=== PATIENT | female | born 1980 | race Caucasian/White ===

== ENCOUNTER 2017-08-05 11:27 | Inpatient (IN) | payer BC ==
[2017-08-05 11:50] LABS: Hematocrit 34.5 % (37.0-47.0); Hemoglobin 12.2 gm/dL (12.5-16.0); Mean Cell Volume 89.4 fl (78-100); Mean Corpuscular Hemoglobin 31.6 pg (27-31); Mean Corpuscular Hgb Conc 35.4 g/dl (32-36); Mean Platelet Volume 10.8 fl (6.0-9.5); Neutrophil # 6.4 K/mm3 (1.3-6.0); Neutrophil % 73.4 % (42-75.0); Platelet Count 191 K/mm3 (150-450); Red Blood Count 3.86 M/mm3 (4.2-5.4); Red Cell Distribution Width 13.2 % (11.5-14.0); White Blood Count 8.8 K/mm3 (4.0-10.5)
[2017-08-05 12:06] LABS: Albumin * 2.9 gm/dl (3.4-5.0); Anion Gap 15.1 mmol/L (6.8-13.8); BUN/Creatinine Ratio 11.3 (9.0-21.6); Bilirubin, Total 0.3 mg/dL (0.0-1.1); Ca. Corrected For Albumin 9.5 mg/dL (8.4-10.2); Calcium * 8.9 mg/dL (7.9-10.9); Potassium 4.1 mmol/L (3.4-4.6); Total Protein 6.6 gm/dL (6.2-8.2)
[2017-08-05] MEDS: RINGER'S SOLUTION,LACTATED 1,000 ML IV ONE ×2 (12:09→14:02)
[2017-08-05] MEDS ORDERED: LIDOCAINE HCL 50 ML VIAL PERI PRN (12:23)
[2017-08-05] MEDS ORDERED: OXYTOCIN/DEXTROSE 5%-WATER 30 UNITS/500 ML BAG IV ONE ×2 (12:23→19:24)
[2017-08-05] MEDS: DEXTROSE 5%-LACTATED RINGERS 1,000 ML IV PRN ×2 (13:08→15:09)
[2017-08-05 13:09] LABS: Cocaine Ur Negative (NEGATIVE); Urine Barbiturate Negative (NEGATIVE); Urine Benzodiazepines Negative (NEGATIVE); Urine Opiates Negative (NEGATIVE); Urine PCP Negative (NEGATIVE); Urine THC Negative (NEGATIVE)
[2017-08-05] MEDS ORDERED: ONDANSETRON HCL/PF 2 MG/ML VIAL IV PRN (14:07)
[2017-08-05] MEDS ORDERED: BUPIVACAINE HCL/0.9 % NACL/PF 250 ML EP PRN (14:07)
[2017-08-05] MEDS ORDERED: NALOXONE HCL 1 MG/1 ML SYRG IV PRN (14:07)
[2017-08-05] MEDS ORDERED: fentaNYL CITRATE/PF 50 MCG/ML AMPUL IT SCH (14:15)
--- NOTE | 2017-08-05 14:43 | OR ---
Anesthesia Pre Procedure Eval Date of Service: 08/05/17 Pre Procedure Evaluation: Anesthesia Pre Procedure Evaluation Heart Rate: 75 Blood Pressure: 130/67 Temperature: 36 2 Respiratory Rate: 18 SaO2: 97 DATE: 08/05/2017 TIME: 1440 INDICATIONS: Active labor, labor pain PAST MEDICAL HISTORY: Multipara patient in active labor requesting labor analgesia. She is currently at 6 cm dilatation History of GERD: No History of smoking: No History of sleep apnea: No EXAM: Heart regular; lungs clear ASSESSMENT OF MEDICAL STATUS: Appropriate candidate for labor analgesia PLANNED PROCEDURE: Combination spinal epidural for labor analgesia Home Medications: HOME MEDICATIONS Ferrous Sulfate 325 mg PO DAILY 07/01/17 [Last Taken Unknown] Magnesium 250 mg PO DAILY 07/01/17 [Last Taken Unknown] Potassium 99 mg PO DAILY 07/01/17 [Last Taken Unknown] Vits96/Iron Fum/Folic [ S] 1 tab PO DAILY 07/01/17 [Last Taken Unknown]
--- NOTE | 2017-08-05 15:04 | OR ---
Anesthesia Procedure Note - Anesthesia Procedure Note Date of Service: 08/05/17 Narrative: 08/05/17 15:02 ANESTHESIA PROCEDURE NOTE Date of Procedure: 08/05/2017 Time of procedure: 1440. Performed by: GULSHAN Hernandez CRNA, MSN Test And Turn Up Technician: Shonda Arzate RN. Preprocedure diagnosis: Active labor, labor pain. Post procedure diagnosis: Same. Procedure:Epidural for labor analgesia L3 4. Indications: Labor pain. Findings: See below. Details of the procedure: The patient was placed on the side of the bed in sitting positionand prepped with DuraPrep then draped in a sterile fashion. Lidocaine 1% was infiltrated to the skin and subcutaneous tissues at the level of the L3 4 interspace. An 18-gauge Touhy needle was used to approach the epidural space with loss of resistance technique. Once loss of resistance was achieved a 27-gauge spinal needle was passed through the epidural needle and CSF was contacted. After CSF returned, 20 mcg of fentanyl was injected in the spinal needle was removed the epidural catheter was then threaded approximately 4 cm in the epidural needle was removed. The catheter was taped in place and after careful aspiration 3 mL of 1.5% lidocaine with 1-200,000 epinephrine was injected without change in maternal heart rate or sensorium. . EBL: Minimal. Fluids: N/A. Specimen: N/A. Post procedure condition: The patient tolerated the procedure well with. Relief. No complications were noted. Thank you for this consultation. Eduardo Rosenbaum CRNA, GLUSHAN, MSN
[2017-08-05] MEDS ORDERED: FLU VACC QS2017-18(6MOS UP)/PF 60 MCG/0.5 ML SYRINGE IM ONE (17:00)
--- NOTE | 2017-08-05 19:20 | OR ---
Operative Report - Dictated Report Narrative: Spontaneous vaginal delivery of viable female at 1847 on 08/05/2017 with Apgars 8 and 9, weighing 2655 g in DANICA position with tight nuchal cord 1 Cord clamping delayed approximately 1 minute Placenta delivered complete, intact, with three vessel cord Estimated blood loss: less than 50 ml Lacerations: None History for MU Definition: * The number of deliveries resulting in a live the patient experienced prior to current hospitalization * The previous delivery of live twins or any live multiple gestation is considered one live event. *If primagravida or nulliparous is documented select zero for the number of previous live births. Live Events: 2
[2017-08-05] MEDS ORDERED: oxyCODONE HCL/ACETAMINOPHEN 1 TAB TABLET PO PRN ×2 (19:24)
[2017-08-05] MEDS ORDERED: HYDROCORTISONE 30 APPL TUBE TP PRN (19:24)
[2017-08-05] MEDS ORDERED: SENNOSIDES 8.6 MG TABLET PO PRN (19:24)
[2017-08-05] MEDS ORDERED: BISACODYL 10 MG SUPP.RECT RC PRN (19:24)
[2017-08-05] MEDS ORDERED: GLYCERIN/WITCH HAZEL LEAF 40 APPL BOX TP PRN (19:24)
[2017-08-05] MEDS ORDERED: BENZOCAINE/MENTHOL 81 SPRAY CAN TP PRN (19:24)
[2017-08-05] MEDS: DOCUSATE SODIUM 100 MG CAPSULE PO SCH (21:06)
[2017-08-05] MEDS: FERROUS SULFATE 325 MG TABLET PO SCH (21:06)
[2017-08-05] MEDS: IBUPROFEN 800 MG TABLET PO PRN (21:47)
[2017-08-06] MEDS ORDERED: RHO(D) IMMUNE GLOBULIN 300 MCG DISP.SYRIN IM ONE (00:28)
[2017-08-06] MEDS: DOCUSATE SODIUM 100 MG CAPSULE PO SCH ×3 (07:41→20:18)
[2017-08-06] MEDS: FERROUS SULFATE 325 MG TABLET PO SCH ×2 (07:41→08:42)
[2017-08-06] MEDS: IBUPROFEN 800 MG TABLET PO PRN ×3 (07:42→22:16)
[2017-08-06] MEDS: MAGNESIUM OXIDE 400 MG TABLET PO SCH (09:20)
[2017-08-06] MEDS: PRENATAL VITS96/IRON FUM/FOLIC 1 TAB TABLET PO SCH (09:20)
--- NOTE | 2017-08-06 12:25 | PN ---
Subjective - Date and Time Seen Date: 08/06/17 Time: 12:25 Objective - Vitals Vitals: Last Vital Signs Temp 36.5 C 08/06/17 08:21 Pulse 63 08/06/17 08:21 Resp 16 08/06/17 08:21 BP 120/71 08/06/17 08:21 Pulse Ox 100 08/06/17 08:21 Patient denies complaints. Lochia wnl Abdomen - soft, nontender Uterus - firm, at umbilicus - 1 No calf tenderness Impression: day #1 - s/p spontaneous vaginal delivery. Plan: Continue routine care Cauti Physician Documentation - Urinary Catheter Management Urethral ([place] Torre) Date of Insertion: 08/05/17 Time of Insertion: 15:25
[2017-08-06] MEDS ORDERED: FLU VACC QS2017-18(6MOS UP)/PF 60 MCG/0.5 ML SYRINGE IM ONE (15:02)
[2017-08-07 08:23] VITALS: BP 131/76
--- NOTE | 2017-08-07 09:21 | PN ---
Subjective - Date and Time Seen Date: 08/07/17 Time: 09:21 Objective - Vitals Vitals: Last Vital Signs Temp 36.4 C L 08/07/17 08:00 Pulse 72 08/07/17 08:00 Resp 20 08/07/17 08:00 BP 131/76 08/07/17 08:00 Pulse Ox 97 08/07/17 02:05 Patient denies complaints. Lochia wnl Abdomen - soft, nontender Uterus - firm, at umbilicus - 2 No calf tenderness Impression: day #2 - s/p spontaneous vaginal delivery. Plan: Routine discharge instructions Cauti Physician Documentation - Urinary Catheter Management Urethral ([place] Torre) Date of Insertion: 08/05/17 Time of Insertion: 15:25
[2017-08-07] MEDS: FERROUS SULFATE 325 MG TABLET PO SCH (09:35)
[2017-08-07] MEDS: IBUPROFEN 800 MG TABLET PO PRN (09:35)
[2017-08-07] MEDS: DOCUSATE SODIUM 100 MG CAPSULE PO SCH (09:35)
[2017-08-07] MEDS: PRENATAL VITS96/IRON FUM/FOLIC 1 TAB TABLET PO SCH (09:35)
[2017-08-07] MEDS: MAGNESIUM OXIDE 400 MG TABLET PO SCH (09:35)
== END 2017-08-07 12:20 | disposition home or self-care (01) | DRG 774 ==
LOC: OBCLINIC 11:27 → OB 11:38
PROVIDERS: ADMIT Obstetrics & Gynecology; ATTEND Obstetrics & Gynecology
PROC: 00HU33Z Insertion of Infusion Device into Spinal Canal, Percutaneous Approach (ICD-10-PCS; principal; 2017-08-05)
PROC: 10E0XZZ Delivery of Products of Conception, External Approach (ICD-10-PCS; 2017-08-05)
PROC: 4A1HXCZ Monitoring of Products of Conception, Cardiac Rate, External Approach (ICD-10-PCS; 2017-08-05)
PROC: 3E0234Z Introduction of Serum, Toxoid and Vaccine into Muscle, Percutaneous Approach (ICD-10-PCS; 2017-08-05)
DX: O60.14X0 Preterm labor third trimester with preterm delivery third trimester, not applicable or unspecified (principal); O46.93 Antepartum hemorrhage, unspecified, third trimester; O69.1XX0 Labor and delivery complicated by cord around neck, with compression, not applicable or unspecified; O99.02 Anemia complicating childbirth; D64.9 Anemia, unspecified; F41.9 Anxiety disorder, unspecified; Z3A.37 37 weeks gestation of pregnancy; Z37.0 Single live birth; Z23 Encounter for immunization
CPT/HCPCS: 36415; 59025; 80053; 80307; 85025; 85460; 86850; 86870; 86900; 88307; 90686; G0008; J2790

== ENCOUNTER 2018-07-21 16:53 | Inpatient (IN) ==
[2018-07-21] MEDS ORDERED: PENICILLIN G POTASSIUM 5 MILLIONUNT in DEXTROSE 5 % IN WATER 100 ML IV ONE ×2 (17:04)
[2018-07-21] MEDS ORDERED: DEXTROSE 5%-LACTATED RINGERS 1,000 ML IV PRN (17:04)
[2018-07-21] MEDS ORDERED: ONDANSETRON HCL/PF 2 MG/ML VIAL IV PRN ×2 (17:04→17:07)
[2018-07-21] MEDS ORDERED: RINGER'S SOLUTION,LACTATED 1,000 ML IV ONE (17:04)
[2018-07-21] MEDS ORDERED: BUPIVACAINE HCL/0.9 % NACL/PF 250 ML EP PRN (17:07)
[2018-07-21] MEDS ORDERED: NALOXONE HCL 1 MG/1 ML SYRG IV PRN (17:07)
[2018-07-21] MEDS ORDERED: OXYTOCIN 30 UNITS in NORMAL SALINE 500 ML IV ONE (17:15)
[2018-07-21] MEDS ORDERED: fentaNYL CITRATE/PF 50 MCG/ML AMPUL IT SCH (17:15)
--- NOTE | 2018-07-21 17:18 | HP ---
Addendum entered and electronically signed by Darell Gupta DO 07/28/18 09:42: Admission Vitals: T 36.2C, P 75, O2 97%, R 16, BP 122/66 Original Note: Chief Complaint - Chief Complaint Date of Service: 07/21/18 Time of Service: 17:07 Chief Complaint: painful contractions History of Present Illness: 38 yo at 37 2/7 wks presents to L&D from office with complaint of painful contractions since approximately 1300 today. This complicated by AMA, h/o PTD x 3 (35,35, and 36wks) - on progesterone suppositories this . Rh negative Rubella immune GBS pending Medical History (Last Reviewed 07/21/18 @ 17:12 by Darell Gupta DO) AMA (advanced maternal age) multigravida 35+ Onset Date: ~2017 ASCUS with positive high risk HPV Onset Date: 09/03/17 Abnormal Pap smear of cervix Onset Date: ~2009 Anxiety Body piercing Insomnia Tattoos Anemia Onset Date: ~2016 Breast lump Onset Date: 10/24/12 Placental abruption Onset Date: ~07/2017 Premature delivery Onset Date: ~2005 Surgical History: Surgical History (Last Reviewed 07/21/18 @ 17:12 by Darell Gupta DO) History of colposcopy Onset Date: 12/06/09 History of breast augmentation Onset Date: 03/15/10 History of breast biopsy Onset Date: 10/24/12 History of colonoscopy Onset Date: 2002 Family History: Family History (Last Reviewed 07/21/18 @ 17:12 by Darell Gupta DO) Brother Lupus Father Hyperlipemia Hypertension Grandmother Heart disease Hypothyroidism Mother Cervical cancer Acoustic neuroma Uncle Colon cancer Social History: Preferred Language Mongolian Review Of Systems (GEN) - Review of Systems EENTM: Present: No Symptoms Reported Respiratory: Present: No Symptoms Reported Cardiac: Present: No Symptoms Reported Abdominal: Present: No Symptoms Reported Genitourinary: Present: No Symptoms Reported, Other - contractions Musculoskeletal: Present: No Symptoms Reported Neurological: Present: No Symptoms Reported Skin: Present: No Symptoms Reported Endocrine: Present: No Symptoms Reported Allergies/Adverse Reactions: Allergies Allergy/AdvReac Type Severity Reaction Status Date / Time No Known Allergies Allergy Verified 07/21/18 17:01 Home Medications: HOME MEDICATIONS Vits96/Iron Fum/Folic [ S] 1 tab PO DAILY 07/01/17 [Last Taken 07/20/18] melatonin 5 mg capsule 5 mg PO .prn cap 05/02/18 [Last Taken Unknown] Exam - Exam Constitutional: Present: Alert, Oriented x3, Cooperative, Moderate distress ENT Exam: Present: hearing grossly normal Respiratory: Present: lungs clear, no respiratory distress Cardiovascular/Chest: Present: regular rate, rhythm Abdomen: Present: soft, nontender, other - gravid /Rectal: Present: Other - cervix 6-7/100/-1 Extremity: Present: no pedal edema, no calf tenderness Skin Exam: Present: normal color, warm/dry, no cyanosis Appearance: Present: appropriate appearance Eye contact: Present: cooperative, good eye contact Thoughts: Present: normal thought pattern Diagnostic Studies: GBS culture done today - results pending. Assessment/Plan - Assessment/Plan (1) Labor established Assessment: Admit for routine management of labor. PCN for unknown GBS status. Epidural PRN. Problem: Acute (2) Advanced maternal age in multigravida Problem: Acute
--- NOTE | 2018-07-21 17:31 | ANES ---
Anesthesia Pre Procedure Eval Vitals/Labs: Last Vital Signs Temp 36.5 C 07/21/18 17:09 Pulse 73 07/21/18 17:09 Resp 18 07/21/18 17:09 BP 127/80 07/21/18 17:09 Pulse Ox 97 07/21/18 17:09 HOME MEDICATIONS Vits96/Iron Fum/Folic [ S] 1 tab PO DAILY 07/01/17 [Last Taken 07/20/18] melatonin 5 mg capsule 5 mg PO .prn cap 05/02/18 [Last Taken Unknown] Allergies/Adverse Reactions: Allergies Allergy/AdvReac Type Severity Reaction Status Date / Time No Known Allergies Allergy Verified 07/21/18 17:01 - Planned Procedure Planned Procedure: ACTIVE LABOR Medication List Reviewed:: Yes Allergies Verified: Yes Medical History (Last Reviewed 07/21/18 @ 17:30 by Anthony Bryant CRNA) AMA (advanced maternal age) multigravida 35+ Onset Date: ~2017 ASCUS with positive high risk HPV Onset Date: 09/03/17 Abnormal Pap smear of cervix Onset Date: ~2009 Anxiety Body piercing Insomnia Tattoos Anemia Onset Date: ~2016 Breast lump Onset Date: 10/24/12 Placental abruption Onset Date: ~07/2017 Premature delivery Onset Date: ~2005 Surgical History (Last Reviewed 07/21/18 @ 17:30 by Anthony Bryant CRNA) History of colposcopy Onset Date: 12/06/09 History of breast augmentation Onset Date: 03/15/10 History of breast biopsy Onset Date: 10/24/12 History of colonoscopy Onset Date: 2002 Family History (Last Reviewed 07/21/18 @ 17:30 by Anthony Bryant CRNA) Brother Lupus Father Hyperlipemia Hypertension Grandmother Heart disease Hypothyroidism Mother Cervical cancer Acoustic neuroma Uncle Colon cancer - Family Anesthesia History Family History:: no untoward family reactions to anesthesia - Airway/Neck/Teeth Within Normal Limits:: Yes Teeth Condition: Intact Mallampatti Score: 2 Thyromental (T-M) distance: > 6 cm Mandibulo Hyoid distance: > 3 cm - Respiratory Respiratory: lungs clear Smoking Status: Never smoker Sleep Apnea currently treated: No Sleep Apnea by current assessment: No - Cardiovascular Patient History - Cardiac/Respiratory: No pertinent hx Tolerates Activity: Good Heart Sounds: S1 & S2, Regular - Anesthesia Assessment and Plan ASA Class: PS, II, E Anesthesia Type Plan: Epidural
--- NOTE | 2018-07-21 17:54 | ANES ---
Post Anesthesia Discharge - Transfer of Care Transfer of Care handoff given to nurse: Yes - Anesthesia Post Op Note Anesthesia Post Op Note: care transferred to OB RN
--- NOTE | 2018-07-21 17:54 | ANES ---
Post Anesthesia Assessment - Vital Signs Vitals: Last Vital Signs Temp 36.5 C 07/21/18 17:09 Pulse 90 07/21/18 17:51 Resp 16 07/21/18 17:51 BP 123/59 07/21/18 17:51 Pulse Ox 97 07/21/18 17:51 Airway Patency: Normal - Mental Status Level Of Consciousness: Awake - Pain Level Pain Score: 1 - N/V Assessment Nausea/Vomiting Presence: None Dehydration:: No
--- NOTE | 2018-07-21 17:57 | ANES ---
Anesthesia Procedure Note Procedure Note: ANESTHESIA PROCEDURE NOTE Date of Procedure: 07/21/2018 Time of procedure:[]. 1745 Performed by: Kaleb Bryant CRNA Digital Marketing Lead: None. Preprocedure diagnosis: Active labor. Post procedure diagnosis: Same. Procedure: Insertion of labor epidural. Indications: The patient is a [38] -year-old [multigravida] female in active labor requesting labor epidural for pain management. Findings: See below. Details of the procedure: The patient was placed in a sitting position. Back was prepped with DuraPrep. Patient was then draped in a sterile fashion. Lidocaine 1% was infiltrated to the skin and subcutaneous tissues at the level of the L3 4 interspace. The epidural space was identified using a 18-gauge Tuohy needle with [id number] technique. 20 mcg fentanyl was given intrathecally using a 27 ga. spinal needle. Epidural catheter was inserted without difficulty. Negative test dose was elicited using 5 mL of 1.5% preservative-free lidocaine plus epinephrine 1 200,000. The epidural catheter was then taped and secured in place. EBL: Minimal. Fluids: N/A. Specimen: N/A. Post procedure condition: The patient tolerated the procedure well. No complications were noted. Thank you for this consultation. Lorenzo CRNA
[2018-07-21] MEDS ORDERED: BISACODYL 10 MG SUPP.RECT RC PRN (19:41)
[2018-07-21] MEDS ORDERED: OXYTOCIN/DEXTROSE 5%-WATER 30 UNITS/500 ML BAG IV ONE (19:41)
[2018-07-21] MEDS ORDERED: SENNOSIDES 8.6 MG TABLET PO PRN (19:41)
[2018-07-21] MEDS ORDERED: GLYCERIN/WITCH HAZEL LEAF 40 APPL BOX TP PRN (19:41)
[2018-07-21] MEDS ORDERED: HYDROCORTISONE 30 APPL TUBE TP PRN (19:41)
[2018-07-21] MEDS ORDERED: BENZOCAINE/MENTHOL 81 SPRAY CAN TP PRN (19:41)
[2018-07-21] MEDS ORDERED: oxyCODONE HCL/ACETAMINOPHEN 1 TAB TABLET PO PRN ×2 (19:41)
--- NOTE | 2018-07-21 19:45 | OR ---
Operative Report - Dictated Report Narrative: Indication: Recurrent late decelerations Pre Procedure: Patient was counseled to the risk, benefits, and alternatives to operative vaginal delivery. All questions were answered. Patient consented to proceed with operative vaginal delivery. Cervix was completely dilated and effaced, maternal- size appropriate for application, bladder was emptied, flexion point identified, cup choice appropriate for application site, maternal tissue excluded from vacuum cup heart rate interpretation: Recurrent late decelerations down to the 70s, EFW 2700 g, station +3, Position of head OA Anesthesia: epidural Procedure: Total application time of the Kiwi Pro with Palm Pump was 20 seconds Maximum vacuum achieved was 500 mm Hg Number of pulls 1 Number of involuntary releases 0 Vacuum reduced between contractions Advancement in station with each pull Degree of rotation 0-45 Post Procedure: Viable male born at 1916 on 07/21/2016 with Apgars 5,8 and 8, weighing 3026 grams in DANICA presentation Placenta spontaneously delivered EBL less than 50 mL Cord gases not collected Lacerations none no injury, no shoulder dystocia
[2018-07-21] MEDS ORDERED: PENICILLIN G POTASSIUM 2.5 MILLIONUNT in DEXTROSE 5 % IN WATER 100 ML IV SCH ×2 (21:05)
[2018-07-21] MEDS: IBUPROFEN 800 MG TABLET PO PRN (23:04)
[2018-07-21] MEDS: DOCUSATE SODIUM 100 MG CAPSULE PO SCH (23:04)
[2018-07-22] MEDS: IBUPROFEN 800 MG TABLET PO PRN ×2 (05:10→11:38)
[2018-07-22] MEDS: DOCUSATE SODIUM 100 MG CAPSULE PO SCH ×2 (11:38→21:50)
--- NOTE | 2018-07-22 13:16 | PN ---
Subjective - Date and Time Seen Date: 07/22/18 Time: 13:15 Objective - Vitals Vitals: Last Vital Signs Temp 36.3 C 07/22/18 07:50 Pulse 58 L 07/22/18 07:50 Resp 16 07/22/18 07:50 BP 123/72 07/22/18 07:50 Pulse Ox 99 07/22/18 07:50 Patient denies complaints. Breast-feeding without difficulty Lochia wnl Abdomen - soft, nontender Uterus - firm, at umbilicus - 1 No calf tenderness Impression: day #1 - s/p spontaneous vaginal delivery. Plan: Continue routine care Assessment/Plan - Problems/Diagnosis (1) Labor established Problem: Acute (2) Advanced maternal age in multigravida Problem: Acute
[2018-07-23] MEDS: IBUPROFEN 800 MG TABLET PO PRN (01:08)
[2018-07-23] MEDS ORDERED: PRENATAL VITS96/IRON FUM/FOLIC 1 TAB TABLET PO SCH (09:00)
[2018-07-23 10:06] VITALS: BP 118/58
[2018-07-23] MEDS: DOCUSATE SODIUM 100 MG CAPSULE PO SCH (10:41)
--- NOTE | 2018-07-23 13:09 | PN ---
Subjective - Date and Time Seen Date: 07/23/18 Time: 13:09 Objective - Vitals Vitals: Last Vital Signs Temp 36.8 C 07/23/18 08:10 Pulse 62 07/23/18 08:10 Resp 16 07/23/18 08:10 BP 118/58 07/23/18 08:10 Pulse Ox 97 07/23/18 08:10 Patient denies complaints. Lochia wnl Abdomen - soft, nontender Uterus - firm, at umbilicus - 2 No calf tenderness Impression: day #2 - s/p spontaneous vaginal delivery. Plan: Routine discharge instructions Assessment/Plan - Problems/Diagnosis (1) Labor established Problem: Acute (2) Advanced maternal age in multigravida Problem: Acute
--- NOTE | 2018-07-28 09:42 | PN ---
Progess Note - Interim Date: 07/28/18 Time: 09:41 History for MU Definition: * The number of deliveries resulting in a live the patient experienced prior to current hospitalization * The previous delivery of live twins or any live multiple gestation is considered one live event. *If primagravida or nulliparous is documented select zero for the number of previous live births. Live Events: 3
== END 2018-07-23 15:45 | disposition home or self-care (01) | DRG 806 ==
LOC: OB 16:53
PROVIDERS: ADMIT Obstetrics & Gynecology; ATTEND Obstetrics & Gynecology
CPT/HCPCS: 59025; 88307